=== PATIENT | female | born 1975 | race Two or more races ===

== ENCOUNTER 2016-08-19 17:47 | Emergency (ER) | payer SELFPAY ==
[2016-08-19 18:30] VITALS: PULSE 76; TEMP 98.3; BMI 27.4
--- NOTE | 2016-08-19 18:35 | DIRPT ---
CLINICAL DATA: Status post fall. EXAM: LEFT FOREARM - 2 VIEW COMPARISON: None. FINDINGS: There is no evidence of fracture or other focal bone lesions. Soft tissues are unremarkable. IMPRESSION: Negative. Electronically Signed By: July Landaverde On: 08/19/2016 18:32
--- NOTE | 2016-08-19 18:39 | DIRPT ---
CLINICAL DATA: Acute left hand pain after fall on ice today. EXAM: LEFT HAND - COMPLETE 3+ VIEW COMPARISON: None. FINDINGS: There is no evidence of fracture or dislocation. There is no evidence of arthropathy or other focal bone abnormality. Soft tissues are unremarkable. IMPRESSION: Normal left hand. Electronically Signed By: Srinath Kenny Jr, M.D. On: 08/19/2016 18:36
--- NOTE | 2016-08-19 18:40 | DIRPT ---
CLINICAL DATA: Fall with lower back pain. Initial encounter. EXAM: LUMBAR SPINE - COMPLETE 4+ VIEW COMPARISON: 11/27/2015 MRI FINDINGS: No evidence of acute fracture or traumatic malalignment. There is chronic trace retrolisthesis at L5-S1. Mild degenerative L4-5 and L5-S1 disc narrowing. IMPRESSION: No acute finding. Electronically Signed By: Mason Perkins M.D. On: 08/19/2016 18:38
--- NOTE | 2016-08-19 18:59 | EDPRACDOC ---
- General Chief Complaint: Fall Stated Complaint: FALL - LEFT ARM PAIN/LOW BACK PAIN Time Seen by Provider: 08/19/16 18:52 - History of Present Illness Onset: TODAY HPI: PT STATES THAT SHE SLIPPED ON ICE TODAY, COMPLAINS OF PAIN IN LOWER BACK, LEFT WRIST AND HAND, NO LOC, TOOK TYLENOL AT HOME WITHOUT RELIEF. NO HEADACHE, DIZZINESS, N/V. Pain Severity: Reports: Moderate Injuries/Pain Location: Reports: upper extremity, back Reason for Fall: Reports: slipped Loss of Consciousness: no loss of consciousness Modifying Factors: improves with: movement Associated Symptoms (Fall): Denies: abdominal pain, chest pain, confusion, dizziness, headache, lightheadedness, muscle spasms, nausea/vomiting, neck pain , ringing in ears, seizures, shortness of breath, slurred speech, trouble walking, vision changes Allergies/Adverse Reactions: Allergies No Known Allergies Allergy (Verified 11/25/15 20:57) Home Medications: Ambulatory Orders Cholecalciferol (Vitamin D3) [Vitamin D3 (cholecalciferol)] 5,000 unit PO DAILY 10/25/15 Levothyroxine [Synthroid, Levoxyl] 125 mcg PO DAILY 10/25/15 Acetaminophen Tablet [TYLENOL Tablet] 975 mg PO Q6 #60 tablet 10/30/15 Docusate-Senna Concentrate [Senokot S or Meenakshi Colace] 2 tab PO HS #60 tablet Oxycodone Immediate Release [Oxycodone Immediate Release (OxyIR)] 5 mg PO Q4H PRN #40 tablet 10/30/15 Clindamycin HCl 300 mg PO TID #20 capsule 11/26/15 Ondansetron [Zofran Odt] 4 mg PO TID PRN #14 tab.rapdis 11/26/15 Cyclobenzaprine HCl [Flexeril] 10 mg PO TID PRN #20 tablet 08/19/16 Ketoprofen 50 mg PO BID PRN #20 capsule 08/19/16 ED Past Medical History - History Reviewed Yes Nurses notes reviewed and agree except as marked - Patient Medical History Systemic History: Reports: Hypothyroidism - Family Medical History Reports: Diabetes (FATHER). Denies: Hypertension, Cancer, Stroke, Cardiac Disorders - Social Medical History Smoking Status: Former smoker EDM Review of Systems - Review of Systems Constitutional: negative: Chills, Fever Eyes: negative: Blurred Vision, Double Vision Ears: negative: Drainage Throat: negative: Pain Nose: negative: Bleeding Genitourinary: negative: Dysuria, Frequency Neurological: negative: Dizziness, Headache, Numbness, Weakness Musculoskeletal: Back, Hand, Wrist Integumentary: No Symptoms Reported - Physical Exam Constitutional: Alert (Awake), No apparent distress Oriented to: Time, Person, Place Last recorded Vital Signs: Last Vital Signs Temp 98.3 F 08/19/16 18:25 Pulse 76 08/19/16 18:25 Resp 18 08/19/16 18:25 BP 121/74 08/19/16 18:25 Pulse Ox 94 08/19/16 18:25 Oxygen Pulse Oxygen Saturation 94 O2 Device Room Air Oxygen Flow Rate Fraction of Inspired Oxygen ( FIO2) - HEENT Head: Normal ( normocephalic) Eye Exam: Normal (PERRL, EOMI, Sclera white) Oropharynx: Normal (Pharynx:Moist without exudate,Gums-no swelling) Tympanic Membrane: Normal ENT EAC: Normal TMJ: Normal Nose: No Symptoms Reported (septum midline) Neck: Normal (FROM, trachea at midline). negative: Midline, Paraspinal Tenderness, Tender - Musculoskeletal Back: Lumbar TTP (MILD DIFFUSE LOWER LUMBAR TTP). negative: Thoracic TTP Musculoskeletal Comment: LEFT ELBOW: FROM, NO SWELLING OR DEFORMITY LEFT FOREARM: NO SWELLING OR DEFORMITY, TTP DISTALLY LEFT WRIST: DIFFUSE TENDERNESS, NO SWELLING OR DEFORMITY, LIMITED ROM DUE TO PAIN LEFT HAND: MINIMAL SWELLING DORSUM OF HAND, NO DEFORMITY - Integumentary Skin: Normal, Warm, Dry Lymphatics: Normal (no adenopathy) - Neurologic Memory Impaired: Normal Motor Function: Normal (Normal tone, Pulses 2+ No cyanosis or edema, FROM) Cranial Nerve: Normal (CN II-X11 intact sensation, strength 5/5) Cerebellar: Normal Mood Description: Normal Perception: Normal ED Injury/Fall Exam - Physical Exam Head Injury: no evidence of injury Extremity Exam: bony-point tenderness, pain with movement Skin: Normal, Warm, Dry - Leyla Coma Score Best Eye Response ([place]): (4) open spontaneously Best Verbal Response ([place]): (5) oriented Best Motor Response (Leyla): (6) obeys commands [place] Total: 15 - Differential Diagnosis Contusion, Fracture - Diagnostic Imaging LEFT FOREARM Image interpreted by: Radiologist LEFT FOREARM - 2 VIEW COMPARISON: None. FINDINGS: There is no evidence of fracture or other focal bone lesions. Soft tissues are unremarkable. IMPRESSION: Negative. LEFT HAND Image interpreted by: Radiologist LEFT HAND - COMPLETE 3+ VIEW COMPARISON: None. FINDINGS: There is no evidence of fracture or dislocation. There is no evidence of arthropathy or other focal bone abnormality. Soft tissues are unremarkable. IMPRESSION: Normal left hand. L-S SPINE Image interpreted by: Radiologist LUMBAR SPINE - COMPLETE 4+ VIEW COMPARISON: 11/27/2015 MRI FINDINGS: No evidence of acute fracture or traumatic malalignment. There is chronic trace retrolisthesis at L5-S1. Mild degenerative L4-5 and L5-S1 disc narrowing. IMPRESSION: No acute finding. Decision Time to Discharge: 19:01 - Departure Disposition: Home Condition: Stable Final Diagnosis: Accidental fall Left wrist sprain Qualifiers: Encounter type: initial encounter Qualified Code(s): S63.502A - Unspecified sprain of left wrist, initial encounter Low back pain Qualifiers: Chronicity: acute Back pain laterality: bilateral Sciatica presence: without sciatica Qualified Code(s): M54.5 - Low back pain Instructions: RICE: Routine Care for Injuries Education/Counseling Given To: Patient Education/Counseling Given Regarding: Diagnosis, Treatment, Prognosis, Follow Up Referrals: Kusum Lang MD [Primary Care Provider] - One Week Prescriptions: Cyclobenzaprine HCl [Flexeril] 10 mg PO TID PRN #20 tablet PRN Reason: Muscle Spasms Ketoprofen 50 mg PO BID PRN #20 capsule PRN Reason: Pain Forms: Excuse Note Additional Instructions: WEAR SPLINT NEEDED FOR COMFORT, APPLY WARM COMPRESSES TO AREAS OF SORENESS 20 MINS AT A TIME 4 - 5 TIMES DAILY NEEDED FOR PAIN, RETURN TO THE ED FOR ANY WORSENING SYMPTOMS OR CONCERNS.
[2016-08-19] MEDS ORDERED: HYDROCODONE 5 MG/ACETAMIN 325 MG TAB PO ONE (19:03)
[2016-08-19 19:27] VITALS: BP 120/70
== END 2016-08-19 19:35 | disposition home or self-care (01) ==
LOC: ED 17:47 → EDMC 19:35
DX: S63.502A Unspecified sprain of left wrist, initial encounter (principal); M54.5 Low back pain; W00.0XXA Fall on same level due to ice and snow, initial encounter; Y93.9 Activity, unspecified
CPT/HCPCS: 72110; 73090; 73130; 99282; J3490